=== PATIENT | female | born 2005 | race Caucasian/White ===

== ENCOUNTER 2023-01-11 16:38 | Emergency (ER) | payer BC, MEDICAID, SELFPAY ==
[2023-01-11 16:39] VITALS: BP 134/78; PULSE 126; RESP 16; TEMP 36.6; O2SAT 98; BMI 20.7
[2023-01-11 16:57] VITALS: PULSE 117
[2023-01-11 17:03] LABS: Absolute Lymphocyte Count 0.36 X10^3/uL (0.83-4.51); Absolute Neutrophil Count 13.6 X10^3/uL (2.0-7.7); Basophil# 0.03 X10^3/uL; Basophil% 0.2 % (0-1); Eosinophil# 0.01 X10^3/uL; Eosinophils% 0.1 % (0-5); Hematocrit 40.7 % (37-47); Lymphocyte # 0.36 X10^3/ul (0.83-4.51); Lymphocyte % 2.5 % (19-41); Mean Corp Hgb Conc 31.9 g/dL (32-36); Mean Corpuscular Hgb 28.6 pg (27.0-32.0); Mean Corpuscular Volume 89.6 fL (81-99); Mean Platelet Vol. 10.6 fl (6.2-12.0); Monocyte# 0.22 X10^3/uL; Monocyte% 1.5 % (0-10); NRBC Flagged by Analyzer 0 % (0-5); Neutrophil # 13.63 X10^3/uL (2.7-7.7); Neutrophil % 95.2 % (47-70); POSITIVE DIFFERENTIAL YES; Platelet Count 226 K/mm3 (150-450); RBC Distribution Width CV 12.4 % (11.6-14.6); RBC Distribution Width SD 40.6 fl (35.1-43.9); Red Blood Count 4.54 M/mm3 (4.2-5.4); White Blood Count 14.3 K/mm3 (4.4-11.0)
[2023-01-11 17:04] LABS: Differential Indicated SCAN CRITERIA MET
[2023-01-11 17:16] LABS: Bacteria 0 SEEN /hpf (None Seen); Mucous, Urine 0 SEEN /hpf (<or=2+); Red Blood Cells-Urine 0 SEEN /hpf (0-5); Squamous Epithelial Cells - UA 0 SEEN /hpf (5-10)
[2023-01-11 17:21] LABS: Differential Comment SCANNED
--- NOTE | 2023-01-11 17:22 | ED.VIS.GI ---
HPI HPI - GI History of Present Illness Chief Complaint: Nausea/Vomiting/Diarrhea Narrative Narrative: 17-year-old female currently 38 weeks presenting with nausea, vomiting, diarrhea since this morning. She states he has not eaten anything out of the ordinary. She states he ate at what everybody else ate last evening and her family had barbecue. She has not had fever, chills, body aches. She denies urinary complaints. Denies vaginal bleeding, discharge, loss of fluid. She is not having any abdominal pain. She states she had multiple brown liquidy stools. She is also had multiple episodes of vomiting. She was able to hold on a couple water in the ER. Her OB sent her to the emergency room to be evaluated. She has not given her anything for nausea prior. PFSH PFSH Medical History no medical history Home Medications ondansetron 4 mg disintegrating tablet 4 mg PO Q8H PRN PRN Nausea #14 tabs 01/11/23 [Rx Last Taken Unknown] Allergy/AdvReac Type Severity Reaction Status Date / Time amoxicillin Allergy Hives Verified 01/11/23 17:24 Social History Smoking Status: Never smoker ROS ROS ED Constitutional Constitutional ED: Denies chills, fever(s) or sweats Eyes Eyes: Denies blurry vision or change in vision ENT ENT ED: Denies ear pain or sore throat Cardiovascular Cardiovascular: Denies chest pain, palpitations or racing heartbeat Respiratory/Chest Respiratory/Chest: Denies cough, dyspnea or sputum Gastrointestinal Gastrointestinal: Reports diarrhea, nausea and vomiting; Denies abdominal pain or constipation Genitourinary Genitourinary ED: Denies dysuria, hematuria or urinary frequency Musculoskeletal Musculoskeletal: Denies arthralgias, myalgias or neck pain Integumentary Denies abscess, Abrasions or rash Neurologic Neurologic: Denies headache(s), paresthesias or weakness Psychiatric Psychiatric: Denies anxiety, depression, suicidal ideation or suicidal thoughts Endocrine Endocrinology: Denies polydipsia or polyuria EXAM Physical Exam Const Vital Signs: 01/11/23 16:39 01/11/23 16:57 01/11/23 18:44 Temperature 98 F Temperature Source Temporal Pulse Rate 126 H 117 H Respiratory Rate 16 16 Blood Pressure 134/78 H Blood Pressure Mean 96 Pulse Ox 98 Oxygen Delivery Method Room Air Positive well nourished General Appearance ED: NAD HEENT normocephalic and atraumatic Eyes PERRL and EOMs intact bilaterally Resp normal respiratory effort Effort and Inspection: Negative for respiratory distress or retractions Cardio regular rhythm Rate: tachycardic GI non-tender GI Narrative: Gravid Back/Spine no CVA tenderness Neuro CN's II-XII intact bilaterally, moves all extremities and no sensory deficits noted Sensorium / Orientation: alert MDM MDM MDM Narrative Medical decision making narrative: Patient presenting with nausea, vomiting, diarrhea. No fevers. No abdominal pain. No urinary or vaginal complaints. Patient well-appearing. Physical exam unremarkable. Patient significantly tachycardic. Patient given Zofran 4 mg IV as well as 2 L of normal saline. CBC shows slight leukocytosis at 14.3. Hemoglobin hematocrit are stable. Platelets are normal. Renal function electrolytes within normal limit. LFTs are normal. Urinalysis shows 150 ketones without evidence of infection. heart tones 156. I did order stool studies however the patient stopped having diarrhea. Rapid COVID is negative. Influenza negative. Viral respiratory panel was sent and is pending. Reevaluation at 745 the patient is feeling much better. I will send her home with Zofran. She is to follow-up with her VETERINARY PRACTICE MANAGER. Return precautions discussed. Impression: 1. Nausea/vomiting 2. Diarrhea Lab Data Labs: Laboratory Results - last 24 hr 01/11/23 01/11/23 01/11/23 16:55 16:55 17:10 WBC 14.3 H RBC 4.54 Hgb 13.0 Hct 40.7 MCV 89.6 MCH 28.6 MCHC 31.9 L RDW Std Deviation 40.6 RDW Coeff of Britany 12.4 Plt Count 226 MPV 10.6 Immature Gran % (Auto) 0.500 Neut % (Auto) 95.2 H Lymph % (Auto) 2.5 L Osborne % (Auto) 1.5 Eos % (Auto) 0.1 Baso % (Auto) 0.2 Absolute Neuts (auto) 13.6 H Absolute Lymphs (auto) 0.36 L Nucleated RBC % 0 Differential Comment SCANNED Sodium 138 Potassium 4.0 Chloride 107 Carbon Dioxide 21.0 Anion Gap 10 BUN 8 Creatinine 0.60 Estim Creat Clear Calc 138.77 Est GFR (MDRD) Af Amer 164 Est GFR (MDRD) Non-Af 136 BUN/Creatinine Ratio 13.3 Glucose 77 Calcium 9.4 Total Bilirubin 0.70 AST 24 ALT 23 Alkaline Phosphatase 182 H Total Protein 7.1 Albumin 2.9 L Globulin 4.2 Albumin/Globulin Ratio 0.7 L Urine Color Yellow Urine Clarity Sl. Cloudy Urine pH 6.0 Ur Specific [place] 1.025 Urine Protein 15 H Urine Glucose (UA) Normal Urine Ketones 150 A* Urine Occult Blood Negative Urine Nitrite Negative Urine Bilirubin 1 H Urine Urobilinogen Normal Ur Leukocyte Esterase 25 H Urine RBC 0 SEEN Urine WBC 0-5 SEEN Ur Squamous Epith Cells 0 SEEN Amorphous Sediment 1+ Urine Bacteria 0 SEEN Urine Mucus 0 SEEN Discharge Plan Triage Chief Complaint: Nausea/Vomiting/Diarrhea ED Provider: Vincent Witt Dx/Rx/DC Orders Instructions: ED Diet Vomiting Diarrhea Prescriptions: New ondansetron 4 mg tablet,disintegrating 4 mg PO Q8H PRN PRN (Reason: Nausea) Qty: 14 0RF Primary Care Provider: Dewayne Cameron Referrals: Dewayne Cameron DO [Primary Care Provider] - Disposition Disposition: Home, Self Care
[2023-01-11] MEDS: Ondansetron 4 MG/2 ML Vial IV (17:26)
[2023-01-11] MEDS: 0.9% Normal Saline 1,000 ML 999 ML IV ×2 (17:26→18:22)
[2023-01-11 17:30] LABS: Color, Urine Yellow (Yellow); Glucose, Dipstick Normal (Normal); Leukocyte Esterase-Dipstick 25 /ul (Negative); Nitrite-Dipstick Negative (Negative); Occult Blood-Urine Negative /ul (Negative); Protein-Dipstick 15 mg/dl (Negative); Specific Gravity, Urine 1.025 (1.002-1.030); Urine Clarity Sl. Cloudy (Clear); Urine Urobilinogen Normal (Normal)
[2023-01-11 17:30] LABS: ALB/GLOB Ratio 0.7 RATIO (0.9-2.4); AST(SGOT) 24 U/L (15-37); Alanine Aminotransfer ALT/SGPT 23 U/L (13-56); Albumin, Serum 2.9 g/dL (3.2-5.0); Alkaline Phosphatase 182 U/L (45-117); Anion Gap 10 (5-15); BUN 8 mg/dL (7-18); BUN/Creat Ratio 13.3 RATIO (10-20); Calcium,Total 9.4 mg/dL (8.5-10.1); Chloride 107 mmol/L (98-107); EST Glomerular Filtration Rate 136 mL/min (>60); Est Glom Filt Rate - Afr Amer 164 mL/min (>60); Estimated Creatinine Clearance 138.77 ml/min; Globulin 4.2 g/dL (2.2-4.2); Glucose 77 mg/dL (74-106); Protein, Total 7.1 g/dL (6.4-8.2); Sodium Level 138 mmol/L (136-145)
[2023-01-11 17:36] LABS: Urine Bilirubin Dipstick 1 mg/dL (Negative)
[2023-01-11 17:37] LABS: Ketone-Dipstick 150 mg/dl (Negative)
[2023-01-11 17:47] LABS: Amorphous Sediment 1+; White Blood Cells 0-5 SEEN /hpf (0-5)
[2023-01-11 18:44] VITALS: RESP 16
== END 2023-01-11 19:55 | disposition home or self-care (01) ==
PROVIDERS: Emergency Provider Student in an Organized Health Care Education/Training Program; PCP Family Medicine; Visit Provider Student in an Organized Health Care Education/Training Program
DX: O99.891 Other specified diseases and conditions complicating pregnancy (principal); R11.2 Nausea with vomiting, unspecified; Z3A.38 38 weeks gestation of pregnancy
CPT/HCPCS: 80053; 81001; 85025; 87633; 87811; 96361; 96374; 99282; J7030; A4216; J2405

== ENCOUNTER 2023-02-20 15:48 | Outpatient (CLI) | payer BC, MEDICAID, SELFPAY ==
[2023-02-20 15:57] VITALS: BMI 21.9
[2023-02-20 16:11] VITALS: BP 111/71; PULSE 80
[2023-02-20 16:38] LABS: ROM Internal Control Test YES-OK TO RESULT pt. (Internal QC); ROM Patient Test Negative (Negative); Record Kit Lot#, ROM+ K1374
--- NOTE | 2023-02-20 18:34 | OB.TRI.NOTE ---
HPI - General General Date of Service: 02/20/23 HPI Narrative ULISSES TREADWELL, is a 17 F @ 40.1 weeks who presents c/o SROM, PFSH PFSH Medical History no medical history Home Medications ondansetron 4 mg disintegrating tablet 4 mg PO Q8H PRN PRN Nausea #14 tabs 01/11/23 [Rx Last Taken Unknown] Allergy/AdvReac Type Severity Reaction Status Date / Time amoxicillin Allergy Hives Verified 01/11/23 17:24 Social History Smoking Status: Never smoker NST FHR Rate Baby A Baseline: 120 Variability:: Moderate Accelerations:: 15 x 15 Decelerations:: None NST Reactive:: Yes FHR Category:: Category I Uterine Activity:: irregular Assessment & Plan (1) 40 weeks gestation of : PLAN: Plan @ 40.1 weeks, Membranes intact, not in labor 1) VE per nursing ./-3- not in labor 2) ROM was negtaive 3) dc home follow up in office this week-scheduled for IOL this week
== END 2023-02-20 16:55 | disposition home or self-care (01) ==
LOC: WPOUT 15:54 → WP 15:55
PROVIDERS: PCP Family Medicine; Referring Provider Obstetrics & Gynecology; Visit Provider Obstetrics & Gynecology
DX: O42.92 Full-term premature rupture of membranes, unspecified as to length of time between rupture and onset of labor (principal); Z3A.40 40 weeks gestation of pregnancy
CPT/HCPCS: 59050; 84112; 99221; G0378

== ENCOUNTER 2023-02-23 06:45 | Inpatient (IN) | payer BC, MEDICAID, SELFPAY ==
[2023-02-23] VITALS (48 sets, daily range): BP systolic 77–137; BP diastolic 42–83; PULSE 77–156; TEMP 36.2–37.2; O2SAT 84–98; BMI 22.3
[2023-02-23] MEDS: Lactated Ringers 1,000 ML 50 ML IV (07:50)
--- NOTE | 2023-02-23 08:20 | HP.PCM.OB_ITS ---
HPI - General General Date of Admission: 02/23/23 HPI Narrative ULISSES TREADWELL, is a 17 F at 40.4 weeks gestation who presents for an elective induction of labor. Maternal Data Information REI Calculator Estimated Delivery Date Method Current WG Current Estimate 02/19/23 Manual 40w 4d PFSH PFSH Medical History (Updated 02/23/23 @ 08:25 by Tessa Alaniz CNM) Anxiety Headache Uterine anomaly Home Medications ondansetron 4 mg disintegrating tablet 4 mg PO Q8H PRN PRN Nausea #14 tabs 01/11/23 [Rx Last Taken Unknown] aspirin 81 mg capsule 81 mg PO DAILY prevention of pre e during 02/23/23 [History Last Taken 02/22/23] ferrous sulfate 325 mg (65 mg iron) tablet (Iron (ferrous sulfate)) 325 mg PO DAILY anemia 02/23/23 [History Last Taken 02/22/23] magnesium oxide 420 mg tablet mg headache 02/23/23 [History Last Taken 02/22/23] no.58-iron bisglycinate 10 mg iron-folic acid 400 mcg capsule cap PO 02/23/23 [History Last Taken 02/22/23] Allergy/AdvReac Type Severity Reaction Status Date / Time amoxicillin Allergy Hives Verified 01/11/23 17:24 Social History Smoking Status: Never smoker History Elective abortions Hx Para 0 Spontaneous abortions Hx # Term Pregnancies Ectopic pregnancies Hx # Pregnancies Multiple births # of living children ROS Eyes Eyes: Denies blurry vision, change in vision or spots in vision ENT HEENT: Denies dizziness or headache(s) Cardiovascular Cardiovascular: Denies abdominal pain, chest pain or dyspnea Respiratory/Chest Respiratory/Chest: Denies cough, dyspnea, shortness of breath at rest or shortness of breath with exertion Gastrointestinal Gastrointestinal: Denies abdominal pain, diarrhea or vomiting Genitourinary Genitourinary: Denies change in urinary stream, difficulty urinating or dysuria Musculoskeletal Musculoskeletal: Reports none Integumentary Integumentary: Denies rash Neurologic Neurologic: Denies dizziness, headache(s), memory loss or weakness Psychiatric Psychiatric: Reports none Vital Signs Vital Signs Vital Signs: 02/23/23 07:23 02/23/23 07:23 Pulse Rate 88 Blood Pressure 118/70 BP Systolic 118 BP Diastolic 70 Weight Weight: 138 lb 4 oz Body Mass Index (BMI) 22.3 Physical Exam Const alert, oriented x3 and no apparent distress General Appearance: cooperative Orientation / Consciousness: awake Exam Limitations: no limitations HEENT normocephalic Head and Scalp: normal to inspection Eyes General Eye: normal appearance of both eyes Neck full ROM and no lymphadenopathy Lymph Lymphatic: no lymphadenopathy noted Chest inspection of chest normal Resp normal respiratory effort, normal air movement and clear to auscultation bilaterally Effort and Inspection: able to speak in complete sentences and symmetric chest movement Cardio regular rate and regular rhythm GI normal to inspection, nondistended, normoactive bowel sounds Manual OB Exam: presentation cephalic, dilated 2, effaced 60 and station - 2 and 0 Back/Spine normal ROM Extremity full ROM and no calf tenderness Skin no rashes or lesions noted General Skin Exam: no breakdown Neuro oriented x3 and CN's II-XII intact bilaterally Psych mental status grossly normal and thought process normal Labs Labs Labs: Blood Type Pending Antibody Screen Pending Hct 40.7 % (37-47) Hgb 13.0 g/dL (12.0-15.0) Syphilis Total Ab Pending Assessment & Plan (1) 40 weeks gestation of : (2) Encounter for elective induction of labor: (3) Bicornate uterus: (4) Rh negative status during : PLAN: Plan Dilapan 5 rods removed from vagina CE /-2 Start Pitocin IV at 2 mu/min and increase per policy Epidural when indicated GBS negative A negative Dr. Castillo notified of admission and is collaborating physician
[2023-02-23 08:25] LABS: Absolute Lymphocyte Count 2.18 X10^3/uL (0.83-4.51); Absolute Neutrophil Count 7.3 X10^3/uL (2.0-7.7); Basophil# 0.08 X10^3/uL; Basophil% 0.8 % (0-1); Eosinophil# 0.14 X10^3/uL; Eosinophils% 1.3 % (0-5); Hematocrit 33.1 % (37-47); Hemoglobin 10.7 g/dL (12.0-15.0); Lymphocyte # 2.18 X10^3/ul (0.83-4.51); Mean Corp Hgb Conc 32.3 g/dL (32-36); Mean Corpuscular Hgb 26.8 pg (27.0-32.0); Mean Platelet Vol. 11.1 fl (6.2-12.0); Monocyte# 0.63 X10^3/uL; Monocyte% 6.1 % (0-10); NRBC Flagged by Analyzer 0 % (0-5); Neutrophil # 7.34 X10^3/uL (2.7-7.7); Neutrophil % 70.5 % (47-70); Platelet Count 218 K/mm3 (150-450); RBC Distribution Width CV 13.3 % (11.6-14.6); Red Blood Count 3.99 M/mm3 (4.2-5.4); White Blood Count 10.4 K/mm3 (4.4-11.0)
[2023-02-23] MEDS: Acetaminophen 500 MG Tablet PO (08:26)
[2023-02-23 09:03] LABS: Syphilis Antibodies Non-reactive
[2023-02-23] MEDS: Oxytocin 15 Units/NS 250ml 15 UNITS/250 ML IV.SOLN 2 UNITS IV (09:12)
[2023-02-23] MEDS: LACTATED RINGERS 500 ML 999 ML IV ×3 (18:31→23:07)
[2023-02-23] MEDS: fentaNYL-bupivacaine (epidural) 100 ML BAG EPIDURAL (19:43)
--- NOTE | 2023-02-23 22:02 | PCM.PN.BLA ---
Progress Note Patient seen at bedside. Denies feeling any pain or contractions. Assessment & Plan Assessment/Plan (1) Rh negative status during : (2) Bicornate uterus: (3) Anxiety: (4) Encounter for elective induction of labor: (5) 40 weeks gestation of : PLAN: Plan Cat. 1 tracing, NST reactive CE- unchanged- 2/60/-2 head ballotable Pitocin IV- continue to increase per policy Epidural when indicated Anticipate
--- NOTE | 2023-02-23 22:07 | PCM.PN.BLA ---
Progress Note Patient seen at bedside. Comfortable with epidural anesthesia other than small area on right side. Assessment & Plan Assessment/Plan (1) 40 weeks gestation of : (2) Encounter for elective induction of labor: (3) Bicornate uterus: (4) Rh negative status during : (5) Anxiety: PLAN: Plan Anesthesia in route to evaluate hot spot Cat. 1 tracing, NST reactive Pitocin IV at 16 mu/min AROM for clear fluid CE - 4/70/-2 Continue present plan of care Dr. Winkler updated on patient's status Anticipate
[2023-02-23] MEDS: Lactated Ringers 1,000 ML 200 ML IV (22:41)
[2023-02-23] MEDS: Ondansetron 4 MG/2 ML Vial IV (22:41)
[2023-02-24] VITALS (35 sets, daily range): BP systolic 97–139; BP diastolic 55–68; PULSE 78–102; RESP 16; TEMP 36.6–37.2; O2SAT 97–100
[2023-02-24] MEDS: fentaNYL-bupivacaine (epidural) 100 ML BAG EPIDURAL (00:05)
[2023-02-24] MEDS: Oxytocin 15 Units/NS 250ml 15 UNITS/250 ML IV.SOLN 83 UNITS IV (02:58)
[2023-02-24] MEDS: Oxytocin 10 UNITS/ML Vial IM (03:01)
--- NOTE | 2023-02-24 03:17 | EX.PCM.OBRPT ---
Assessment & Plan (1) (spontaneous vaginal delivery): (2) Rh negative status during : (3) Bicornate uterus: (4) Laceration, obstetrical, first degree: (5) Care and examination of lactating mother: Maternal Data Information REI Calculator Estimated Delivery Date Method Current WG Current Estimate 02/19/23 Manual 40w 5d Vaginal Delivery Maternal Presentation Maternal Presentation: Elective Induction Maternal Presentation: at 40.5 weeks presented for a scheduled elective induction of labor. Type of Induction: Pitocin, Amniotomy and - (Dilapan) Operative Information Date of Procedure: 02/24/23 Pre-Operative Diagnosis: Term gestation, induction of labor Post-Operative Diagnosis: , Live female Surgery / Procedure Performed: Spontaneous Vaginal Delivery Type of Anesthesia: Epidural Drain: Dorantes to straight drain Estimated Blood Loss: 250 Time of Delivery: 02:55 Findings Description of Procedure: Called to patient's room and provided bedside support during pushing. With good maternal effort, head delivered over intact perineum. Loose nuchal cord easily reduced. With next push, anterior shoulder followed by remainder of body delivered without traction. Vigorous female placed on maternal abdomen and was attended to by nursing staff. Pitocin IM given for active management of the third stage of labor. 3 vessel cord clamped and cut after delay by FOB. Cord blood collected and sent. Infant placed immediately skin to skin with patient. Placenta delivered spontaneously and intact. First degree vaginal lacerations repaired in usual fashion using 3-0 Vicryl Rapid. Hemostasis obtained. Fundus firm 2 below U. EBL 250 cc. APGARS 9/9. Infant and patient bonding well at this time. Dr. Castillo notified of delivery. Presentation: Vertex Amniotic Membrane Rupture Type: Artificial Time of Membrane Rupture: 2104 Amniotic Fluid Description: Clear Placental Delivery Description: Spontaneous Placenta Disposition: [facility] Cord Vessel Description: 3 Vessels Cord Entanglement: Around neck x 1, loose and - (Around body x 1 loose) Nuchal Cord Compression: Without compression A Gender: Female (1 minute): 9 (5 minute): 9 Delayed Cord Clamping: Yes Post Vaginal Delivery Medications Given After Delivery: IV Pitocin and IM Pitocin Laceration: 1st degree Complication Complications: None
[2023-02-24] MEDS: Acetaminophen 500 MG Tablet PO (03:22)
--- NOTE | 2023-02-24 14:36 | CASEMGMT ---
Social Work Assessment Labor and Delivery Unit Patient Address:[address] [place], [place] [id number] Phone number: [phone] Date of Referral: 02/23/23 Time of Referral:? 0801 Referred By: Tessa Alaniz Date of Intervention: ??02/24/23 Time of Intervention:? 1400 Reason for Referral:? Parent substance abuse/ addict Sw completed chart review and acknowledges social work consult submitted. Sw presented to bedside and met with mother and father of baby. Sw introduced self and explained sw role during hospitalization in the Labor and Delivery Unit. History obtained from: medical records, MOB and KAVIN. ? Household composition: Parents report that they are currently residing with paternal grandparents. Also residing in the home is KAVIN brother and his girlfriend who just delivered their first baby a couple of weeks ago. Patient's parent/guardian status:? LD is 17 year old single female who states that she and KAVIN have been together for 1.5 years. MOB states that her younger sister introduced them to each other. KAVIN is 22 year old single male. ? Medical History: This is first and delivery for LD. LD received routine care during with [facility]. LD got admitted on 02/23/23 for an induction. Baby girl, named Lizzeth Carbajal was born weighing 6lb 7oz, her apgars were 9 and 9. MOB reports that she is and it is going ok. No other medical issues or concerns expressed at this time. Educational Status:? Both parents are high school graduates. KAVIN reports that he has some college education but did not graduate. LD states that she has plans in the Spring to attend school for nursing. Parents deny any learning challenges, they are able to learn, read and write without difficulty. Financial Status: Both parents are gainfully employed outside of the home. FOArian works as a service aide at [employer]. 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 FOB states that he does not get any paid time off. MOB states that she gets 12 weeks of maternity leave. Infant Supplies:??MOB states that they have obtained all necessary baby items for baby including; car seat, safe sleep space (bassinet), clothes, diapers and wipes. MOB also states that she has a breast pump. Childcare/Caregiver(s): MOB reports that when both parents are working baby will be watched by paternal grandma or by MOB's younger sister. No childcare concerns at this time. ? Transportation:?? Both parents have dependable means of transportation. No transportation barriers at this time. Programs/Agencies Involved: ???MOB requested information for [facility]. LD is receiving [employer] insurance through [employer]. Children Services/Legal Issues:???None reported at this time. No concerns warranting need for referral. Behavioral Health Issues: ??Mental Health History:?FOB denies mental health history. MOB states that at one point she was diagnosed with generalized anxiety due to a situation that she was in. MOB states that she was not prescribed anything at that time and is not connected to counseling supports. Sw provided education to parents on signs and symptoms of baby blues and depression. Parents expressed understanding. ?? Substance Use History:?MOB denies substance use prior to and during . ? Family History:??MOB states that her mom does have a substance use history. MOB states that her mom recently got out of sober living, however a lot of trust has been broken and LD does not have a good relationship with her. LD states that she will let her mom come and meet Lizzeth but she will not be alone with her and she will not be a childcare provider.. Sw provided support and approval of plan. ??? Drug Screens: No urine screens observed in chart review. Family/Social Stressors:?Parents report that they are a DNP because they do not want their family to know that baby was born. Parents state that they love their family, but believe that their family would not abide by boundaries parents have in place and they would all want to be at the hospital all the time. Sw praised parents for making that mature decision. Sw also encouraged parents to abide by those boundaries even after discharge. Parents expressed understanding. Support Systems: Parents state that their biggest support people are paternal family. Depression/Shaken Baby/Safe Sleeping: Sw educated parents on signs and symptoms of baby blues and post depression. Sw educated parents on ABCs of safe sleep and shaken baby prevention. Parents expressed understanding. ?? ASSESSMENT:? Parents at bedside and providing calm and quiet environment for baby. FOB observed to be very quiet with not a lot of emotion/ facial expressions. Sw asked FOB if he is typically this calm and collected. FOB stated that he was really excited during the delivery, but normally is calm. MOB stated that she teases FOB to never show his emotions. Parents were talkative and engaged in assessment. Parents receptive to sw involvement and support. MOB wanting more information on WIC and possibly receptive to referral for [facility] once she and baby are ready for discharge. PLAN:? Continue to provide support and education throughout hospitalization. Sw will give parents WIC information and make referral to [facility] if desired at time of discharge. ?No other services requested or indicated. Meng Bustillos, AFLOAT CRYPTOLOGIC MANAGER, BALLISTICS EXPERT
[2023-02-24] MEDS: Senna/Docusate Sodium 1 Tablet PO (18:29)
[2023-02-24] MEDS: Naproxen 500 MG Tablet PO (22:35)
[2023-02-25 00:28] VITALS: BP 114/69; PULSE 96; PULSE 98; O2SAT 98
[2023-02-25 04:43] VITALS: BP 119/69; PULSE 73
[2023-02-25 04:44] VITALS: BP 119/69; PULSE 73; RESP 16; TEMP 36.2; O2SAT 99
[2023-02-25] MEDS: Acetaminophen 500 MG Tablet 1000 MG PO (04:54)
[2023-02-25 08:36] VITALS: BP 110/68; PULSE 75; PULSE 81; RESP 16; O2SAT 98
[2023-02-25] MEDS: Naproxen 500 MG Tablet PO (08:44)
--- NOTE | 2023-02-25 08:52 | PCM.PN.OB ---
Subjective Subjective No complaints Objective Data Objective Data Vital Signs: Vital Signs Temp Pulse Resp BP Pulse Ox O2 Del Method 97.1 F L 81 16 110/68 98 Room Air 02/25/23 04:44 02/25/23 08:36 02/25/23 08:36 02/25/23 08:36 02/25/23 08:36 02/25/23 08:36 Oxygen Delivery Method Room Air Weight: 138 lb 4 oz Body Mass Index (BMI) 22.3 Intake & Output: Intake and Output for Last 24 Hours 02/23/23 02/24/23 02/25/23 23:59 23:59 23:59 Intake Total 2061.63 / 2561.63 1784.13 / 1784.13 Output Total 700 / 700 2400 / 2400 Balance 1361.63 / 1861.63 -615.87 / -615.87 Lab / Micro Data 02/23/23 07:50 Physical Exam Const alert, oriented x3 and no apparent distress HEENT normocephalic GI soft to palpation, non-tender and non-distended GI Narrative: fundus firm, mid & below umbilicus Extremity normal to inspection and no calf tenderness Assessment & Plan (1) (spontaneous vaginal delivery): COMMENT: PPD#1 PLAN: Plan D/c home
--- NOTE | 2023-02-25 08:53 | DCINST_ITS ---
Discharge Instructions Diet Discharge Diet: No restrictions Activity Discharge Activity: May Shower May resume sexual activity in: 6 weeks Weight Bearing Status: Weight bearing as tolerated Dressing / Incision Call your doctor if you observe: Fever of 101 or Higher, Coldness, Increased Pain, Change in Color, Inability to urinate, Inability to have a bowel movement, Using more than 1 pad per hour, Shortness of breath, Dizziness, Fainting spells, Chest pain, Increased palpitations (irregular heartbeat), Calf discomfort and Uncontrolled pain Follow Up Care Please Follow Up With: Francheska Barger MD When: Follow up in 2 and 6 weeks for visits. Test Results: Test results from this visit will be discussed in further detail at your follow- up appointment, if applicable. Discharge Plan Admission Admit Date/Time: 02/23/23 06:45 Primary Reason for Your Visit: Vaginal delivery Attending Provider: Tessa Alaniz Primary Care Provider: Dewayne Cameron Discharge Orders/Prescriptions Prescriptions: New acetaminophen 500 mg Tablet 1,000 mg PO Q6H PRN PRN (Reason: Pain 1-10 Or Fever) Qty: 0 0RF naproxen 500 mg Tablet 500 mg PO Q8H PRN PRN (Reason: Pain Score 1-3) Qty: 0 0RF Continued magnesium oxide 420 mg tablet 420 mg PO DAILY Patient Comments: Take 1 tablet by mouth once daily. PNV comb no.58-iron bisgly-FA 10-400 mg-mcg capsule 1 cap PO DAILY Discontinued ondansetron 4 mg tablet,disintegrating 4 mg PO Q8H PRN PRN (Reason: Nausea) Qty: 14 0RF Hold Instructions: pt no longer taking ferrous sulfate [Iron (ferrous sulfate)] 325 mg (65 mg iron) tablet 325 mg PO DAILY aspirin 81 mg capsule 81 mg PO DAILY Referrals / Follow Up: Dewayne Cameron DO [Primary Care Provider] - Disposition Disposition (needs filled in before D/C Order can be placed): Home, Self Care
== END 2023-02-25 11:30 | disposition home or self-care (01) | DRG 807 ==
PROVIDERS: Obstetrics & Gynecology; Admitting Provider Advanced Practice Midwife; PCP Family Medicine; Referring Provider Advanced Practice Midwife; Visit Provider Advanced Practice Midwife
DX: O48.0 Post-term pregnancy (principal); Z37.0 Single live birth; O99.344 Other mental disorders complicating childbirth; F41.9 Anxiety disorder, unspecified; O69.81X0 Labor and delivery complicated by cord around neck, without compression, not applicable or unspecified; O70.0 First degree perineal laceration during delivery; O34.03 Maternal care for unspecified congenital malformation of uterus, third trimester; Q51.3 Bicornate uterus; Z3A.40 40 weeks gestation of pregnancy; Z79.82 Long term (current) use of aspirin; Z79.899 Other long term (current) drug therapy
CPT/HCPCS: 59025; 59050; 85025; 85461; 86780; 86850; 86900; 86901; 99221; J7120; G0378; J2405; J2790

== ENCOUNTER → 2023-08-23 | Outpatient (CLI) | payer BC, MEDICAID, SELFPAY ==
[2023-08-23 18:11] LABS: Absolute Lymphocyte Count 1.46 X10^3/uL (0.83-4.51); Absolute Neutrophil Count 3.7 X10^3/uL (2.0-7.7); Basophil# 0.05 X10^3/uL; Basophil% 0.9 % (0-1); Eosinophil# 0.15 X10^3/uL; Eosinophils% 2.6 % (0-5); Hematocrit 46.2 % (37-47); Lymphocyte # 1.46 X10^3/ul (0.83-4.51); Lymphocyte % 25.3 % (19-41); Mean Corp Hgb Conc 32.5 g/dL (32-36); Mean Corpuscular Hgb 28.3 pg (27.0-32.0); Mean Corpuscular Volume 87.2 fL (81-99); Mean Platelet Vol. 10.8 fl (6.2-12.0); Monocyte# 0.46 X10^3/uL; NRBC Flagged by Analyzer 0 % (0-5); Neutrophil # 3.65 X10^3/uL (2.7-7.7); Platelet Count 233 K/mm3 (150-450); RBC Distribution Width CV 12.8 % (11.6-14.6); RBC Distribution Width SD 40.5 fl (35.1-43.9); White Blood Count 5.8 K/mm3 (4.4-11.0)
[2023-08-23 18:29] LABS: Hemoglobin A1c 4.9 % (3.8-5.6)
[2023-08-23 18:30] LABS: T3 Total - Triiodothyronine 0.94 ng/mL (0.6-1.81)
[2023-08-23 18:48] LABS: ALB/GLOB Ratio 1.3 RATIO (0.9-2.4); AST(SGOT) 18 U/L (15-37); Alanine Aminotransfer ALT/SGPT 24 U/L (13-56); Albumin, Serum 4.4 g/dL (3.2-5.0); Alkaline Phosphatase 94 U/L (45-117); Anion Gap 4 (5-15); BUN 11 mg/dL (7-18); BUN/Creat Ratio 16.7 RATIO (10-20); Calcium,Total 8.9 mg/dL (8.5-10.1); Chloride 109 mmol/L (98-107); Creatinine, Serum 0.66 mg/dL (0.55-1.02); EST Glomerular Filtration Rate 121 mL/min (>60); Est Glom Filt Rate - Afr Amer 147 mL/min (>60); Globulin 3.3 g/dL (2.2-4.2); Glucose 84 mg/dL (74-106); Potassium 3.7 mmol/L (3.5-5.1); Protein, Total 7.7 g/dL (6.4-8.2); Sodium Level 138 mmol/L (136-145); T4 Free Direct 0.97 ng/dL (0.76-1.46); Thyroid Stim Hormone (TSH) 0.89 uIU/mL (0.358-3.74)
[2023-08-25 18:07] LABS: Anti-Thyroglobulin AB < 1.0 IU/mL (0.0-0.9); Thyroglobulin, Serum Qt. 12.8 ng/mL (1.5-38.5); Thyroid Peroxidase AB < 9 IU/mL (0-34)
== END | disposition home or self-care (01) ==
LOC: MFPLAB 14:34
PROVIDERS: PCP Family Medicine; Visit Provider Family Medicine
DX: R63.0 Anorexia (principal)
CPT/HCPCS: 36415; 80053; 83036; 84432; 84439; 84443; 84480; 85025; 86376; 86800

== ENCOUNTER → 2023-12-29 | Outpatient (CLI) | payer BC, MEDICAID, SELFPAY ==
[2023-12-29 18:05] LABS: Thyroid Stim Hormone (TSH) 1.05 uIU/mL (0.358-3.74)
[2023-12-31 14:08] LABS: C-Peptide 8.7 ng/mL (1.1-4.4); Insulin Level 32.9 uIU/mL (2.6-24.9)
== END | disposition home or self-care (01) ==
LOC: MFPLAB 14:42
PROVIDERS: Visit Provider Family Medicine
DX: R63.6 Underweight (principal)
CPT/HCPCS: 36415; 82533; 83525; 84439; 84443; 84681

== ENCOUNTER → 2024-02-15 | Outpatient (CLI) | payer BC, MEDICAID, SELFPAY ==
[2024-02-15 15:38] LABS: Absolute Lymphocyte Count 2.07 X10^3/uL (0.83-4.51); Absolute Neutrophil Count 2.6 X10^3/uL (2.0-7.7); Basophil# 0.11 X10^3/uL; Basophil% 2.1 % (0-1); Eosinophil# 0.18 X10^3/uL; Eosinophils% 3.4 % (0-5); Hematocrit 42.7 % (37-47); Lymphocyte # 2.07 X10^3/ul (0.83-4.51); Lymphocyte % 39.3 % (19-41); Mean Corp Hgb Conc 32.8 g/dL (32-36); Mean Corpuscular Hgb 29.2 pg (27.0-32.0); Mean Corpuscular Volume 89.1 fL (81-99); Mean Platelet Vol. 10.6 fl (6.2-12.0); Monocyte# 0.35 X10^3/uL; Monocyte% 6.6 % (0-10); NRBC Flagged by Analyzer 0 % (0-5); Neutrophil # 2.55 X10^3/uL (2.7-7.7); Neutrophil % 48.4 % (47-70); Platelet Count 240 K/mm3 (150-450); RBC Distribution Width CV 12.6 % (11.6-14.6); RBC Distribution Width SD 41.5 fl (35.1-43.9); Red Blood Count 4.79 M/mm3 (4.2-5.4); White Blood Count 5.3 K/mm3 (4.4-11.0)
[2024-02-15 15:54] LABS: Erythrocyte Sedimentation Rate < 1 mm/hr (0-30)
[2024-02-15 17:45] LABS: Internal QC Validated? YES +Cl - CLEAR BKGD; Pregnancy, Serum, hCG Quali. NEGATIVE Negative
[2024-02-15 18:13] LABS: ALB/GLOB Ratio 1.2 RATIO (0.9-2.4); AST(SGOT) 20 U/L (15-37); Alanine Aminotransfer ALT/SGPT 20 U/L (13-56); Alkaline Phosphatase 69 U/L (45-117); Anion Gap 7 (5-15); BUN 11 mg/dL (7-18); BUN/Creat Ratio 14.2 RATIO (10-20); CRP < 2.90 mg/L (0.0-3.0); Calcium,Total 9.5 mg/dL (8.5-10.1); Chloride 109 mmol/L (98-107); Creatinine, Serum 0.77 mg/dL (0.55-1.02); EST Glomerular Filtration Rate 100 mL/min (>60); Est Glom Filt Rate - Afr Amer 121 mL/min (>60); Globulin 3.2 g/dL (2.2-4.2); Glucose 94 mg/dL (74-106); Potassium 3.8 mmol/L (3.5-5.1); Protein, Total 7.2 g/dL (6.4-8.2); Sodium Level 139 mmol/L (136-145)
== END | disposition home or self-care (01) ==
LOC: MFPLAB 14:07
PROVIDERS: PCP Family Medicine; Visit Provider Family Medicine
DX: R10.9 Unspecified abdominal pain (principal)
CPT/HCPCS: 36415; 80053; 84703; 85025; 85652; 86140

== ENCOUNTER 2024-02-16 16:49 | Emergency (ER) | payer BC, MEDICAID, SELFPAY ==
[2024-02-16 16:51] VITALS: BP 125/78; PULSE 108; RESP 18; TEMP 36.6; O2SAT 100; BMI 16.5
--- NOTE | 2024-02-16 17:10 | CT_ITS ---
EXAM: CT ABDOMEN AND PELVIS WITH INTRAVENOUS CONTRAST CLINICAL INDICATION: Right upper and lower quadrant abdominal pain. TECHNIQUE: Helically acquired images were obtained of the abdomen and pelvis with intravenous contrast. This CT exam was performed using one or more of the following dose reduction techniques: automated exposure control, adjustment of the mA and/or kV according to patient size, and/or use of iterative reconstruction technique. CONTRAST: IV 75mL Isovue-370 COMPARISON: No relevant prior studies available. FINDINGS: LOWER THORAX: Unremarkable. Lung bases are clear. No cardiomegaly. No significant pericardial effusion. ABDOMEN: LIVER: Unremarkable. Homogeneous. No focal mass. GALLBLADDER AND BILE DUCTS: Unremarkable. No calcified gallstones. No gallbladder distention or wall edema. No intra- or extrahepatic biliary ductal dilation. PANCREAS: Unremarkable. No focal cystic or solid mass. SPLEEN: Unremarkable. Normal size without focal cystic or solid mass. ADRENALS: Unremarkable. No nodules. KIDNEYS AND URETERS: Unremarkable. Normal renal size and position. No hydronephrosis. STOMACH AND BOWEL: Unremarkable. No stomach or bowel distention. No focal inflammatory change. PELVIS: APPENDIX: No evidence of acute appendicitis. BLADDER: Unremarkable. REPRODUCTIVE: Unremarkable as visualized. No mass. ABDOMEN and PELVIS: INTRAPERITONEAL SPACE: Unremarkable. No ascites or other fluid collection. No free air. BONES/JOINTS: Unremarkable. No suspicious lytic or blastic abnormality. SOFT TISSUES: Unremarkable. No discrete abdominal or pelvic wall hernia. VASCULATURE: Unremarkable. Abdominal aorta is non-dilated. LYMPH NODES: Unremarkable. No enlarged lymph nodes. CT/Abdomen/Pelvis W IV Cont ONLY IMPRESSION: Negative CT of the abdomen and pelvis with intravenous contrast. Electronically Signed: Quinten Henriquez MD at 18:21 EDT ,
--- NOTE | 2024-02-16 17:11 | ED.VIS.GI ---
HPI HPI - GI History of Present Illness Chief Complaint: Abd Pain Detail of Chief Complaint: Right-sided abdominal pain. Informant: patient Abdominal Pain/Flank Pain Onset: Weeks Context: Gradual Onset Timing: Intermittent Quality: Aching Location: RUQ and RLQ Current Severity: Mild Maximum Severity: Mild Worsened by: Nothing Relieved by: Nothing Nausea/Vomiting/Emesis GI Symptom: Positive for Nausea; Negative for Vomiting Onset: Today Severity: Mild Diarrhea/Melena/Hematochezia GI Symptom: Negative for Diarrhea, Melena or Hematochezia Associated Symptoms Associated Symptoms: Negative for Dysuria, Frequency, Hematuria or Urgency LMP: January 29, 2024 Narrative Narrative: 18-year-old female history of elevated liver enzymes last 2 months with any specific cause. She had a child about a year ago. Her most recent menstrual period was January 28. States that she has had abdominal pain for 2 to 3 weeks. Would come and go usually brief in the episodes. Last 3 days it has been more constant initially started very low right lower quadrant like in her pelvis. Now it is more right side of her abdomen upper and lower quadrant. Mild nausea no vomiting or diarrhea. No fever or chills. No dysuria hematuria. No vaginal bleeding or discharge. No prior history. No prior abdominal trauma. No prior abdominal surgeries. 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 Nausea. Review of Systems ROS Unobtainable: Denies due to encephalopathy Constitutional Constitutional ED: Denies chills or fever(s) ENT ENT ED: Denies ear pain Cardiovascular Cardiovascular: Denies chest pain Gastrointestinal Gastrointestinal: Reports abdominal pain and nausea; Denies constipation, diarrhea, melena or vomiting Genitourinary Genitourinary ED: Denies dysuria or hematuria Musculoskeletal Musculoskeletal: Denies arthralgias or back pain Integumentary Denies abscess or Abrasions Neurologic Neurologic: Denies headache(s) Psychiatric Psychiatric: Denies anxiety Endocrine Endocrinology: Denies polydipsia Hematologic/Lymphatic Hematologic/Lymphatic: Denies easy bleeding Allergic/Immunologic Allergic/Immunologic ED: Denies mouth swelling or tongue swelling EXAM Physical Exam Narrative Exam Narrative: 18-year-old female no acute distress sitting upright in bed. Vital signs are stable afebrile. H EENT exam unremarkable. Moist extremities. Neck nontender. Lungs clear. Heart regular rhythm rate about 100 no murmur. Chest wall ribs nontender. Abdomen is soft nondistended normal bowel sounds no peritoneal signs. Mild right-sided abdominal tenderness. Both upper and lower quadrants. Not specifically Babcock sign. No McBurney's point exquisite tenderness. No hernia or mass. No distention. Left-sided abdomen is nontender. No signs of trauma. Moving all 4 extremities. Nontender no edema. Back nontender. She is awake and alert. Const Vital Signs: 02/16/24 16:51 Temperature 98 F Temperature Source Temporal Pulse Rate 108 H Respiratory Rate 18 Blood Pressure 125/78 H Blood Pressure Mean 93 Pulse Ox 100 Oxygen Delivery Method Room Air Positive well nourished and well developed; Negative for obese, cachectic, contractures or unkempt General Appearance ED: well developed and NAD; Negative for unkempt, cachectic, contractures or pallor Nutritional Appearance: Negative for cachectic or obese HEENT Reports moist mucous membranes; Denies dry mucous membranes normocephalic and atraumatic; Negative for trauma or tenderness Mouth ED: No dry mucous membranes Mouth: No dry mucous membranes Eyes PERRL and EOMs intact bilaterally General Eye ED: Negative for pale conjunctiva or scleral icterus Neck no lymphadenopathy, supple and no JVD General: Negative for tenderness Carotids: Negative for other Lymph Lymphatic: Negative for other Resp normal respiratory effort and clear to auscultation bilaterally Effort and Inspection: Negative for respiratory distress Auscultation: Negative for rales, rhonchi, wheezes or diminished lung sounds Cardio regular rate, regular rhythm, S1 normal heart sound, S2 normal heart sound and no murmurs Rate: Negative for bradycardia or tachycardic Rhythm: Negative for abnormal rhythm GI non-distended and no masses; Negative for non-tender GI Narrative: Right upper and lower quadrant tenderness. No peritoneal signs. No hernia or mass. Inspection: Negative for abdominal distention Auscultation: normoactive bowel sounds Palpation: soft and tender; Negative for guarding, rigid, hepatomegaly, splenomegaly, hernia, mass, pulsatile mass or rebound tenderness present Back/Spine no CVA tenderness General Back: Negative for CVA tenderness Cervical Spine: Negative for cervical spine tenderness Thoracic Spine / Upper Back: Negative for thoracic spinal tenderness Lumbar Spine / Lower Back: Negative for lumbar spinal tenderness Coccyx: Negative for other Extremity full ROM General Extremety ED: Negative for edema or tenderness General Extremity: Negative for edema Neuro CN's II-XII intact bilaterally and moves all extremities Sensorium / Orientation: alert, oriented to person, oriented to place and oriented to time; Negative for orientation impaired, confused or lethargic Motor Exam: strength 5/5 throughout Psych mental status grossly normal and thought process normal Appearance: Negative for unkempt Attitude: No agitated Mood & Affect: Negative for depressed, anxious or tearful Skin no wounds General Skin Exam: Negative for jaundice or pallor Lesions: no lesions Rashes: no rashes Trauma: Negative for abrasion MDM MDM MDM Narrative Medical decision making narrative: 18-year-old female with 2 to 3-week history of intermittent right lower quadrant pain that is now in the last 2 to 3 days more constant and right upper and lower quadrant pain. No fever or dysuria. CAT scan labs pending. Exam shows only mild tenderness. No peritoneal signs. Limited expectation of this is appendicitis. Could be gallbladder. Could be an ovarian cyst. But also UTI and kidney stone possibilities. Zofran for nausea. Patient did not need or want a thing for pain. Repeat exam patient is doing well. 6:25 PM. Her blood work urinalysis were both negative. Her CT abdomen and pelvis done with IV contrast showed no acute abnormality. Was read by the radiologist and reviewed by me. She is resting comfortably. She will be discharged home Tylenol Motrin for pain. Follow-up as needed. Return if feeling worse. History & Record Review Discussion w/independent historian: Patient Additional record(s) reviewed:: Prior inpatient record, Prior outpatient record, Prior ED visit and Prior labs Lab Data Attestation: I reviewed the patient's lab results. Lab results narrative: CBC normal. White count of 7. H&H 14 and 43. Platelets 249. Electrolytes show potassium 3.4. Gap 7. Normal BUN and creatinine. Glucose 74. Liver enzymes normal. Lipase normal at 20. Serum test negative. UA normal. Labs: Laboratory Results - last 24 hr 02/16/24 02/16/24 17:03 17:37 WBC 7.3 RBC 4.91 Hgb 14.5 Hct 43.8 MCV 89.2 MCH 29.5 MCHC 33.1 RDW Std Deviation 41.2 RDW Coeff of Britany 12.6 Plt Count 249 MPV 10.4 Immature Gran % (Auto) 0.100 Neut % (Auto) 46.8 L Lymph % (Auto) 41.4 H [place]ike % (Auto) 7.2 Eos % (Auto) 3.3 Baso % (Auto) 1.2 H Absolute Neuts (auto) 3.4 Absolute Lymphs (auto) 3.01 Nucleated RBC % 0 Sodium 140 Potassium 3.4 L Chloride 108 H Carbon Dioxide 25.0 Anion Gap 7 BUN 13 Creatinine 0.75 Estim Creat Clear Calc 90.05 Est GFR (MDRD) Af Amer 125 Est GFR (MDRD) Non-Af 104 BUN/Creatinine Ratio 17.3 Glucose 74 Calcium 9.2 Total Bilirubin 0.40 AST 16 ALT 21 Alkaline Phosphatase 82 Total Protein 7.7 Albumin 4.2 Globulin 3.5 Albumin/Globulin Ratio 1.2 Lipase 20 Serum , Qual NEGATIVE Urine Color Yellow Urine Clarity Sl. Cloudy Urine pH 8.0 Ur Specific [place] 1.010 Urine Protein Negative Urine Glucose (UA) Normal Urine Ketones Negative Urine Occult Blood Negative Urine Nitrite Negative Urine Bilirubin Negative Urine Urobilinogen Normal Ur Leukocyte Esterase Negative Urine RBC 0 SEEN Urine WBC 0 SEEN Ur Squamous Epith Cells 0-5 SEEN Amorphous Sediment 1+ PHOS Urine Bacteria 0 SEEN Urine Mucus 0 SEEN Radiography Diagnostic Testing: Clinical Impression(s) from Imaging Studies Abdomen/Pelvis CT 02/16/24 17:10 IMPRESSION: Negative CT of the abdomen and pelvis with intravenous contrast. Electronically Signed: Quinten Henriquez MD at 18:21 EDT , Discharge Plan Triage Chief Complaint: Abd Pain ED Provider: Roderick Smith Dx/Rx/DC Orders Clinical Impression: Abdominal pain Instructions: Abdominal Pain Prescriptions: No Action sumatriptan succinate 25 mg tablet 25 mg PO BID PRN PRN (Reason: migraine headache) sertraline 25 mg tablet 75 mg PO DAILY bupropion HCl 150 mg tablet extended release 24 hr 150 mg PO DAILY Primary Care Provider: Robbie Couch Referrals: Robbie Couch MD [Primary Care Provider] - 3-5 Days if not improving Ad Noyola MD [Med Staff - Medical And Health Services Manager] - Activity Restrictions/Additional Instructions: Your labs and CAT scan and urine were all normal. Tylenol and/or Motrin for pain. Follow-up if not improving return if a lot worse. Currently has no signs of appendicitis or gallbladder disease. There is no obstruction. There is no seen kidney stone or kidney infection. Print Language: Icelandic Disposition Disposition: Home, Self Care
[2024-02-16 17:19] LABS: Absolute Lymphocyte Count 3.01 X10^3/uL (0.83-4.51); Absolute Neutrophil Count 3.4 X10^3/uL (2.0-7.7); Basophil# 0.09 X10^3/uL; Basophil% 1.2 % (0-1); Eosinophil# 0.24 X10^3/uL; Eosinophils% 3.3 % (0-5); Hematocrit 43.8 % (37-47); Hemoglobin 14.5 g/dL (12.0-15.0); Lymphocyte # 3.01 X10^3/ul (0.83-4.51); Lymphocyte % 41.4 % (19-41); Mean Corp Hgb Conc 33.1 g/dL (32-36); Mean Corpuscular Hgb 29.5 pg (27.0-32.0); Mean Corpuscular Volume 89.2 fL (81-99); Mean Platelet Vol. 10.4 fl (6.2-12.0); Monocyte# 0.52 X10^3/uL; Monocyte% 7.2 % (0-10); NRBC Flagged by Analyzer 0 % (0-5); Neutrophil % 46.8 % (47-70); Platelet Count 249 K/mm3 (150-450); RBC Distribution Width CV 12.6 % (11.6-14.6); RBC Distribution Width SD 41.2 fl (35.1-43.9); Red Blood Count 4.91 M/mm3 (4.2-5.4); White Blood Count 7.3 K/mm3 (4.4-11.0)
[2024-02-16 17:44] LABS: Bacteria 0 SEEN /hpf (None Seen); Mucous, Urine 0 SEEN /hpf (<or=2+); Red Blood Cells-Urine 0 SEEN /hpf (0-5); White Blood Cells 0 SEEN /hpf (0-5)
[2024-02-16 17:45] LABS: Internal QC Validated? YES +Cl - CLEAR BKGD; Pregnancy, Serum, hCG Quali. NEGATIVE Negative; Record Kit Lot#, Serum Preg. 772476
[2024-02-16] MEDS: Ondansetron 4 MG/2 ML Vial IV (17:46)
[2024-02-16 17:49] LABS: Color, Urine Yellow (Yellow); Glucose, Dipstick Normal (Normal); Ketone-Dipstick Negative (Negative); Leukocyte Esterase-Dipstick Negative /ul (Negative); Nitrite-Dipstick Negative (Negative); Occult Blood-Urine Negative /ul (Negative); Protein-Dipstick Negative (Negative); Urine Bilirubin Dipstick Negative (Negative); Urine Clarity Sl. Cloudy (Clear); Urine Urobilinogen Normal (Normal)
[2024-02-16 17:54] LABS: ALB/GLOB Ratio 1.2 RATIO (0.9-2.4); AST(SGOT) 16 U/L (15-37); Alanine Aminotransfer ALT/SGPT 21 U/L (13-56); Albumin, Serum 4.2 g/dL (3.2-5.0); Alkaline Phosphatase 82 U/L (45-117); Anion Gap 7 (5-15); BUN 13 mg/dL (7-18); BUN/Creat Ratio 17.3 RATIO (10-20); Calcium,Total 9.2 mg/dL (8.5-10.1); Chloride 108 mmol/L (98-107); Creatinine, Serum 0.75 mg/dL (0.55-1.02); EST Glomerular Filtration Rate 104 mL/min (>60); Est Glom Filt Rate - Afr Amer 125 mL/min (>60); Estimated Creatinine Clearance 90.05 ml/min; Globulin 3.5 g/dL (2.2-4.2); Glucose 74 mg/dL (74-106); Lipase 20 U/L (13-75); Potassium 3.4 mmol/L (3.5-5.1); Protein, Total 7.7 g/dL (6.4-8.2); Sodium Level 140 mmol/L (136-145)
[2024-02-16 17:57] LABS: Amorphous Sediment 1+ PHOS; Squamous Epithelial Cells - UA 0-5 SEEN /hpf (5-10)
[2024-02-16 18:44] VITALS: BP 109/65; PULSE 88; RESP 16; TEMP 36.3; O2SAT 98
== END 2024-02-16 18:46 | disposition home or self-care (01) ==
PROVIDERS: Emergency Provider Emergency Medicine; PCP Family Medicine; Visit Provider Emergency Medicine
DX: R10.9 Unspecified abdominal pain (principal); F41.9 Anxiety disorder, unspecified; Z79.899 Other long term (current) drug therapy
CPT/HCPCS: 74177; 80053; 81001; 83690; 84703; 85025; 96374; 99283; Q9967; A4216; J2405

== ENCOUNTER → 2024-03-05 | Outpatient (CLI) | payer BC, MEDICAID, SELFPAY ==
--- NOTE | 2024-03-05 13:30 | US_ITS ---
STUDY: ULTRASOUND OF THE FEMALE PELVIS - COMPLETE REASON FOR EXAM: Female, 18 years old. Pelvic pain LMP: January 30, 2024. TECHNIQUE: Transabdominal and Transvaginal TECHNICAL QUALITY: Adequate. COMPARISON: None. FINDINGS: The uterus is anteverted and is in a midline position. The uterus measures 9.2 cm x 6.6 cm x 4 cm. Normal uterine cervix. The endometrium measures 5.6 mm in thickness, and is heterogeneous (striated). There is no demonstrated endometrial mass. There is no demonstrated myometrial mass. I.U.D. - The patient does not have an I.U.D. The right ovary is visualized. The right ovary measures 4.2 cm x 4 cm x 3.2 cm. There is a 3.7 cm x 3.1 cm x 2.3 cm cyst. There is no visualized right adnexal mass or complex lesion. There is normal arterial and normal venous vascularity. The left ovary is visualized. The left ovary measures 4.2 cm x 2.1 cm x 1.7 cm. There is a 1.1 cm x 1.2 cm x 1.3 cm follicle in the left ovary. There is no visualized left adnexal mass or complex lesion. There is normal arterial and normal venous vascularity. There is minimal fluid in the cul-de-sac. The pre void volume of the bladder was 212 ml. US/Pelvic w/ Transvaginal IMPRESSION: Right ovarian cyst. Electronically Signed: Mohit Chakraborty MD at 13:49 EDT ,
== END | disposition home or self-care (01) ==
PROVIDERS: PCP Family Medicine; Referring Provider Family Medicine; Visit Provider Family Medicine
DX: R10.9 Unspecified abdominal pain (principal); N83.201 Unspecified ovarian cyst, right side
CPT/HCPCS: 76830; 76856

== ENCOUNTER → 2024-05-22 | Outpatient (CLI) | payer BC, SELFPAY ==
[2024-05-22 12:29] LABS: Absolute Lymphocyte Count 2.28 X10^3/uL (0.83-4.51); Basophil# 0.08 X10^3/uL; Basophil% 1.3 % (0-1); Eosinophil# 0.24 X10^3/uL; Hematocrit 42.8 % (37-47); Hemoglobin 14.2 g/dL (12.0-15.0); Lymphocyte # 2.28 X10^3/ul (0.83-4.51); Lymphocyte % 37.9 % (19-41); Mean Corp Hgb Conc 33.2 g/dL (32-36); Mean Corpuscular Hgb 29.8 pg (27.0-32.0); Mean Corpuscular Volume 89.7 fL (81-99); Mean Platelet Vol. 10.5 fl (6.2-12.0); Monocyte# 0.46 X10^3/uL; Monocyte% 7.6 % (0-10); NRBC Flagged by Analyzer 0 % (0-5); Neutrophil # 2.95 X10^3/uL (2.7-7.7); Platelet Count 223 K/mm3 (150-450); RBC Distribution Width SD 39.5 fl (35.1-43.9); Red Blood Count 4.77 M/mm3 (4.2-5.4)
[2024-05-22 13:32] LABS: ALB/GLOB Ratio 1.4 RATIO (0.9-2.4); AST(SGOT) 14 U/L (15-37); Alanine Aminotransfer ALT/SGPT 18 U/L (13-56); Albumin, Serum 4.3 g/dL (3.2-5.0); Alkaline Phosphatase 68 U/L (45-117); Anion Gap 7 (5-15); BUN 9 mg/dL (7-18); BUN/Creat Ratio 14.4 RATIO (10-20); Chloride 107 mmol/L (98-107); Creatinine, Serum 0.62 mg/dL (0.55-1.02); EST Glomerular Filtration Rate 128 mL/min (>60); Est Glom Filt Rate - Afr Amer 155 mL/min (>60); Globulin 3.1 g/dL (2.2-4.2); Glucose 91 mg/dL (74-106); Potassium 4.5 mmol/L (3.5-5.1); Protein, Total 7.4 g/dL (6.4-8.2); Sodium Level 138 mmol/L (136-145)
== END | disposition home or self-care (01) ==
PROVIDERS: PCP Family Medicine; Referring Provider Psychiatry & Neurology Neurology; Visit Provider Psychiatry & Neurology Neurology
DX: R51.9 Headache, unspecified (principal)
CPT/HCPCS: 36415; 80053; 85025

== ENCOUNTER → 2024-06-19 | Outpatient (CLI) | payer BC, SELFPAY ==
--- NOTE | 2024-06-19 06:34 | MRI_ITS ---
INDICATION: Headache with focal findings occipital -- Episodic loss of vision, increasing in frequency and intensity EXAMINATION: MRA - MRA Head W/O Contrast TECHNIQUE: Routine [place] of [place]/brain 3D time of flight MR angiogram protocol was performed without gadolinium. 3D reconstructions were reviewed. IV Contrast Dosage and Agent: None. COMPARISON: No relevant prior comparison study available FINDINGS: --Anterior Circulation: ICAs: No significant stenosis at the intracranial/visualized segments. ACAs: No significant stenosis at the visualized segments. ACOM: Present. MCAs: No significant stenosis at the visualized segments. --Posterior Circulation: invoice classification clerk: No significant stenosis at the visualized segments. BASILAR ARTERY: No significant stenosis. VERTEBRAL ARTERIES: No significant stenosis at the intradural/visualized segments. No evidence of intracranial aneurysm or vascular malformation. MRI/MRA Head ONLY without Contrast IMPRESSION: Unremarkable MRA head. Electronically Signed: Helen Bowman MD at 8:16 EST ,
--- NOTE | 2024-06-19 06:34 | MRI_ITS ---
INDICATION: Headache with focal findings occipital -- Episodic loss of vision, increasing in frequency and intensity EXAMINATION: MRA - MRA Neck WO/W Contrast TECHNIQUE: Routine non-contrast [id number] Carotid MR angiogram protocol was performed without gadolinium. 3D reconstructions were reviewed. Nascet criteria using the distal ICAs for comparison were used for evaluation of stenoses. IV Contrast Dosage and Agent: None. COMPARISON: No relevant prior comparison study available FINDINGS: AORTIC ARCH AND BRANCHES: No significant stenosis at the visualized portions. RIGHT CCA: No occlusion or significant stenosis. RIGHT ICA: No occlusion or significant stenosis. LEFT CCA: No occlusion or significant stenosis. LEFT ICA: No occlusion or significant stenosis. RIGHT VERTEBRAL ARTERY: No occlusion or significant stenosis. LEFT VERTEBRAL ARTERY: No occlusion or significant stenosis. No evidence of acute injury of the major arterial system of the neck. MRI/MRA Neck WITH and W/O Contrast IMPRESSION: Negative non-contrast MRA of the Neck. Electronically Signed: Helen Bowman MD at 23:19 EST ,
--- NOTE | 2024-06-19 06:34 | MRI_ITS ---
STUDY: MRI BRAIN WITH AND WITHOUT CONTRAST REASON FOR EXAM: Female, 19 years old. Headache with focal findings occipital -- Episodic loss of vision, increasing in frequency and intensity TECHNIQUE: Standardized multiplanar fat and water weighted pulse sequences were obtained. IV CLARISCAN 10ML was administered for the contrast portion of the examination. COMPARISON: None. FINDINGS: Normal size of the ventricles and extra-axial spaces for the patient''s age. Normal white matter tracts of the supratentorial brain. There is no evidence for recent intracranial ischemia or other cause of cytotoxic edema on diffusion weighted imaging (DWI). Normal T2* images of the brain without demonstrated susceptibility artifact. There is no demonstrated hemosiderin stain. Normal bilateral basal ganglia. Normal thalami. There is no extra-axial fluid accumulation. Normal flow voids within the major intracranial circulation suggesting patency by spin echo criteria. Normal venous enhancement. There is no enhancing intra-axial or extra-axial abnormality. Normal sella turcica, pituitary gland, infundibular stalk, optic chiasm and hypothalamus. Normal tectal plate and pineal gland. Normal midbrain, angela and medulla. Normal cerebellum. Normal basal cisterns. Normal bilateral temporal bones. Normal bilateral internal auditory canals. No demonstrated orbital abnormality, within the constraints of a routine brain study. There is mucoperiosteal inflammatory disease of the paranasal sinuses consistent with moderate chronic sinusitis. Normal calvarium and skull base. Normal visualized soft tissue structures. Normal visualized upper cervical spine. MRI/Brain W/WO Contrast IMPRESSION: Normal unenhanced and enhanced MRI of the brain. Moderate sinusitis. Electronically Signed: Yaya Dumont MD at 9:43 EST ,
== END | disposition home or self-care (01) ==
LOC: MRI 06:27
PROVIDERS: PCP Family Medicine; Referring Provider Psychiatry & Neurology Neurology; Visit Provider Psychiatry & Neurology Neurology
DX: R51.9 Headache, unspecified (principal)
CPT/HCPCS: 70544; 70549; 70553; A9575; A4216